=== PATIENT | female | born 1970 | race Caucasian/White ===

== ENCOUNTER → 2018-12-29 | Outpatient (CLI) | payer SELFPAY ==
--- NOTE | 2018-12-29 14:45 | EMB_PTH ---
PATIENT: JOSUE NGUYEN LOC: [facility] U#:[id number] AGE/SX: 48/F ROOM: RE12/29/[address]: Dr. Piotr Muir MD : [id number] BED: DIS: 12/29/2018 SPEC #: [id number] RECD: 12/29/18 16:13 STATUS: TYSON MARVIN #: [id number] NATASHA: 12/29/18 14:[address]: Piotr Muir DEPT: SURGICAL PATHOLOGY RECD BY: Hermelinda Zuleta Tissues: A - Endometrium, NOS B - Uterine cervix, NOS Procedures: Surgery Specimen Level IV HEADER OPERATION: Endometrial biopsy, polypectomy PRE-OP DIAGNOSIS: N92.6, N84.1 TISSUE SUBMITTED: A. Endometrial biopsy, B. Cervical polyp MICROSCOPIC DIAGNOSIS A. Endometrium, biopsy: Weakly proliferative to inactive endometrium. B. Cervical polyp, polypectomy: Benign endocervix polyp with squamous metaplasia, inflamed. AM:alexandria 12/31/18 MICROSCOPIC DESCRIPTION Slides are reviewed. GROSS DESCRIPTION A - Received in fixative is one container labeled with the patient's name and designated EM biopsy. The specimen consists of multiple fragments of hemorrhagic soft tissue that in aggregate measure 3 x 2.5 x 0.2 cm. The entire specimen is submitted in one cassette. B - Received in fixative is one container labeled with the patient's name and designated cervical polyp. The specimen consists of a piece of guerrero-pink polyp measuring 1.5 x 1.5 x 0.9 cm. The polyp is bisected. Also present in the container are multiple fragments of guerrero mucoid tissue measuring in aggregate 2.5 x 2.5 x 0.2 cm. The entire specimen is submitted in two cassettes. / SJ:alexandria 12/30/18 TC:1 [facility]: [id number] x2
[2019-01-03 16:31] LABS: HPV Reflexed? NOT INDICATED
== END | disposition home or self-care (01) ==
LOC: LABSPEC 16:27
PROVIDERS: Referring Provider Obstetrics & Gynecology; Visit Provider Obstetrics & Gynecology
DX: N92.6 Irregular menstruation, unspecified (principal); N84.1 Polyp of cervix uteri; Z12.4 Encounter for screening for malignant neoplasm of cervix
CPT/HCPCS: 88175; 88305; G0145

== ENCOUNTER 2021-04-02 10:43 | Outpatient (CLI) | payer BC, SELFPAY ==
[2021-04-04 14:29] LABS: HPV Reflexed? NOT INDICATED
== END 2021-04-02 23:59 | disposition home or self-care (01) ==
LOC: LABSPEC 10:44
PROVIDERS: Visit Provider Obstetrics & Gynecology
DX: Z12.4 Encounter for screening for malignant neoplasm of cervix (principal)
CPT/HCPCS: 88175; G0145

== ENCOUNTER 2021-04-16 15:00 | Outpatient (CLI) | payer BC, SELFPAY ==
--- NOTE | 2021-04-16 15:05 | BI_ITS ---
MAMMOGRAPHY - BILATERAL SCREENING REASON FOR EXAM: Female, 50 years old. Routine annual screening examination. PERTINENT HISTORY: Aunt with breast cancer. TECHNIQUE: Digital bilateral breast vangie (3D mammographic acquisition) in the CC and MLO projections. 2-D mediolateral oblique (MLO) and craniocaudad (CC) views of both breasts were obtained. CAD: Full Field Digital Mammography with Computer Added Detection was performed. COMPARISON: None. Baseline examination. FINDINGS: Breast Composition: There are scattered areas of fibroglandular density. There is an 8.1 mm well-defined nodule in the axillary region of the right breast. This most likely represents a small lymph node. Correlation with ultrasound is recommended. No other significant abnormalities are identified. BI/SCRN MAMM (CAD)W/VANGIE BILAT IMPRESSION: 8.1 mm well-defined nodule in the axillary region of the right breast. Correlation with ultrasound is recommended. ASSESSMENT CATEGORY: BIRADS Category 0: Incomplete. Need additional imaging evaluation. A letter regarding these results will be sent to the patient by the facility within 30 days. Approximately 10% of breast cancers are not detected by mammography. A normal mammogram should not delay biopsy of a clinically suspicious abnormality. [id number] Electronically Signed: Mian Phan MD at 8:21 EST ,
== END 2021-04-16 23:59 | disposition home or self-care (01) ==
PROVIDERS: PCP Internal Medicine; Visit Provider Obstetrics & Gynecology
DX: Z12.31 Encounter for screening mammogram for malignant neoplasm of breast (principal)
CPT/HCPCS: 77063; 77067

== ENCOUNTER 2021-04-23 07:46 | Outpatient (CLI) | payer BC, SELFPAY ==
--- NOTE | 2021-04-23 07:51 | US_ITS ---
STUDY: ULTRASOUND BREAST - RIGHT REASON FOR EXAM: Female, 50 years old. Abnormal screening mammogram. TECHNIQUE: Axial and longitudinal images of the RIGHT breast were performed with a high resolution ultrasound transducer. # OF IMAGES: 16 COMPARISON: Comparison is made with prior mammogram dated 04/17/2019. FINDINGS: RIGHT Breast: At the 10 o''clock position of the breast at 10 cm from nipple, there are 2 adjacent subcentimeter cysts. The larger cyst measures 8 mm x 5 mm x 3 mm. US/Breast Limited Unilateral IMPRESSION: The mammographic abnormality corresponds to 2 adjacent subcentimeter cysts at the 10 o''clock position of the breast at 10 cm from nipple. ASSESSMENT CATEGORY: BIRADS Category 2: Benign. A letter regarding these results will be sent to the patient by the facility within 30 days. Electronically Signed: Mian Phan MD at 10:39 EST ,
== END 2021-04-23 23:59 | disposition home or self-care (01) ==
LOC: OPUS 07:49
PROVIDERS: PCP Internal Medicine; Visit Provider Obstetrics & Gynecology
DX: N63.31 Unspecified lump in axillary tail of the right breast (principal)
CPT/HCPCS: 76642

== ENCOUNTER 2022-08-22 14:30 | Outpatient (RCR) | payer BC, SELFPAY ==
--- NOTE | 2022-07-24 14:59 | HP.PTEVAL ---
Patient's Visit Information JOSUE NGUYEN is a 51 year old F referred to Physical Therapy by Dr. Barrera Case DPM with a diagnosis of Peroneal tendonitis left leg, M76.72. Date of Evaluation: 07/24/22 Physical Therapist: Johnny Golden - Visit Plan Frequency: 2x /Week Duration: 6 Weeks Plan: Continue with calf stretches, ankle strengthening, and balance exercises. Use manual therapy and modalities as needed for pain control. - Subjective Pt. is a 51 y.o. female who is having lateral left ankle pain which has been going on since ary 3rd this past year when she went to a park and was walking on concrete and noticed increased pain after this. She notes that the pain has not really resolved since then. Her PLOF history of left plantar fascia tear in 2014. She had recent x-ray of her ankle/foot which was negative but has not had an MRI. Pt. denies any numbness or tingling in her left foot. Pt. normally has keen hiking shoes that she walks with and has Larsen shoe. She has difficulty with walking on uneven ground, walking for long periods of time, occasional housework, yard work, and caring for her dad. 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 Her goal with physical therapy is to get back to hiking with no pain. Pt. denies any left ankle/foot pain currently, at worst 6/10 and describes the pain as sharp. Pt. is taking Meloxicam for pain. Her PMH includes L4-L5 fusion, right patellar fracture, and right 3rd metatarsal stress fracture. Her hobbies include riding bicycle and hiking. - Objective Palpation- No tenderness to palpation. Left AROM DF 6 degrees, PF 39 degrees, Inv 32 degrees, Ev 15 degrees. Right AROM DF 8 degrees, PF 40 degrees, Inv 34 degrees, Ev 18 degrees. Left hip strength flexion 5/5, abduction 5/5, adduction 5/5, extension 5/5, knee flexion 5/5, knee extension 5/5, ankle DF 5/5, PF 4+/5, Inv 5/5, Ev 4+/5. Right hip strength flexion 5/5, abduction 5/5, adduction 5/5, extension 5/5, knee flexion 5/5, knee extension 5/5, ankle DF 5/5, PF 5/5, Inv 5/5, Ev 5/5. Special tests- Anterior drawer [-], Talar tilt [-], Metatarsal squeeze [-], Syndemosis squeeze [-]. Tandem stance left 30 secs, right 30 secs. SLS left 30 secs, right 30 secs. Gait- Pt. ambulates with no gait deviations. - Balance/Special Test Scores Lower Extremity Functional Score: 51 - Goals Goal 1:: Pt. will improve left ankle strength to 5/5 for all motions in order to complete ADL's. Goal Time Frame: 4-6 Weeks Goal 2:: Pt. will improve left ankle DF > 10 degrees in order to improve gait mechanics. Goal Time Frame: 4-6 Weeks Goal 3:: Pt. will be able to walk for at least 30 minutes with left ankle pain < 3/10. Goal Time Frame: 4-6 Weeks Goal 4:: Pt. will rate left ankle pain at worst at 3/10 with ADL's. Goal Time Frame: 4-6 Weeks Goal 5:: Pt. will improve LEFS score < 20% impairment in order to improve mobility. Goal Time Frame: 4-6 Weeks - Rehabilitation Potential Physical Therapy Diagnosis: Decreased left ankle ROM, strength, balance, and pain. Pt. presents at this time with possible left peroneal tendinitis. Rehabilitation Potential: Good - Anticipated Interventions Patient/Client Instruction: Educate patient on: Condition, Plan of Care, Benefits of Fitness Program For the Purpose of:: To decrease pain, To improve ability to perform ADL's, To improve performance and independence with ADL's, To assume or resume ADL's, To improve tolerance to ADL's Therapeutic Exercise to Include: Strength training, Balance training, Gait and locomotor training, Active ROM Comment: Continue with improving left ankle strength and balance exercises. For the Purpose of:: To decrease pain, To improve ability to perform ADL's, To improve performance and independence with ADL's, To increase flexibility/ROM, To assume or resume ADL's, To improve tolerance to ADL's Manual Therapy Techniques to Include: Massage, Mobilization, Soft tissue mobilization For the Purpose of:: To decrease pain, To decrease swelling/inflammation, To increase ROM, To improve ability to perform ADL's, To improve performance and independence with ADL's, To assume or resume ADL's, To improve tolerance to ADL's TENS: Yes IF ES: Yes Cryotherapy (ice pack, ice massage): Yes Thermo therapy (hot pack): Yes Ultrasound (thermal/non thermal): Yes For the Purpose of:: To decrease pain, To decrease swelling/inflammation, To increase ROM Thank you for the opportunity to evaluate your patient. For Medicare and Medicare HMO plans, please review the plan of care and approve it. It will need to be FAXED BACK to us at [phone] for Medicare purposes. For Medicare only, by signing this I certify the plan of care. Please let me know if there are questions or concerns regarding this plan of care. Physician Signature: Date:
--- NOTE | 2022-08-22 15:10 | HP.PTDCSUM_ITS ---
Discharge Summary D/C summary: It has been my pleasure to treat JOSUE NGUYEN referred by Dr. Barrera Caes [place], with the diagnosis of Peroneal tendonitis left leg, M76.72 for a total of 8 visit(s). Discharge Date: 08/22/22 Please see the following information for a summary of their discharge status. Subjective Subjective: Pt. reports no pain currently. Pt. was released by her physician. pt. pleased with progress thus far. pt. was able to hike 2.5 miles the other day without much issue. Pt. overall pleased. Pain L ankle: Pain Intensity (Out of 10): 0 Overall Improvement % Improvement: 80 Objective Objective/Function: ROM: R ankle: DF 16deg, PF 49deg. INV 18deg, EVR 16deg. L ankle DF 15deg, PF 46deg, INV 18deg, EVR 18deg. MMT: 5/5 throughout B ankles without increase in symptoms. GAIT: Pt. has a fairly normal gait pattern without increase in symptoms. STAIRS: Pt. is able to complete with reciprocal pattern with use of 1HR without issues. Goals Goal 1:: Pt. will improve left ankle strength to 5/5 for all motions in order to complete ADL's. Goal Progress: Goal Met Goal 2:: Pt. will improve left ankle DF > 10 degrees in order to improve gait mechanics. Goal Progress: Goal Met Goal 3:: Pt. will be able to walk for at least 30 minutes with left ankle pain < 3/10. Goal Progress: Goal Met Goal 4:: Pt. will rate left ankle pain at worst at 3/10 with ADL's. Goal Progress: Goal Met Goal 5:: Pt. will improve LEFS score < 20% impairment in order to improve mobility. Goal Progress: Goal Met Plan Plan: Pt. to be DC from PT to [facility] at this point in time. D/C Information Discharge Comments: Pt. was treated in PT with focus on reducing symptoms with manual techniques, progressing to ankle strengthening and foot intrinsic streng thening. Progressing to ankle stability training to allow for better tolerance with all hiking and walking. d/c sentence: If there are questions or concerns regarding this patient's physical therapy, please feel free to call me at [phone]. Thank you for the referral of this patient. Sincerely, Beck L Sipos, DPT Balance/Gait/Functional tests Balance/Special Test Scores Lower Extremity Functional Score: 64
== END 2022-08-22 19:00 | disposition home or self-care (01) ==
LOC: PT 14:30
PROVIDERS: PCP Internal Medicine; Referring Provider Podiatrist; Visit Provider Podiatrist
DX: M76.72 Peroneal tendinitis, left leg (principal)
CPT/HCPCS: 97110; 97140; 97161; 97164